=== PATIENT | female | born 1965 | race Caucasian/White ===

== ENCOUNTER 2016-06-09 13:00 | Inpatient (IN) | payer OTHER ==
[~2016-06-09] VITALS: Ht 160 cm; Wt 95.7 kg
--- NOTE | ~2016-06-09 | DS ---
PATIENT'S NAME: [facility] AGE: 51 Y [address] ROOM: [place] [address] LOCATION: [facility] ADMIT DATE: 06/15/2016 Discharge Summary DISCHARGE DATE: 06/17/2016 FAMILY PHYSICIAN: Steven Herrera MD ATTENDING PHYSICIAN: Negor Arias PRIMARY DIAGNOSIS: Degenerative joint disease of the right knee. SECONDARY DIAGNOSES: 1. GERD. 2. Asthma. 3. Obstructive sleep apnea with CPAP. 4. Neuropathy bilateral lower extremities. PROCEDURE PERFORMED: Right total knee arthroplasty. HISTORY: The patient is a 51-year-old female, who presents with advanced right knee degenerative joint disease and associated severely compromised activities of daily living. The patient has decided to proceed with total knee arthroplasty after having been thoroughly counseled regarding the risks, benefits, limitations and alternatives. Please refer to the outpatient clinic notes and admission history and physical for this patient. HOSPITAL COURSE: The patient underwent a right total knee arthroplasty on 06/15/2016 without complications. Spinal anesthesia plus adductor canal block plus periarticular local anesthesia was utilized. The patient received 24 hours of perioperative prophylactic antibiotics and remained hemodynamically stable, neurovascularly intact throughout the entire hospital course. The postoperative prophylactic deep venous thrombosis prophylaxis consisted of Xarelto, early mobilization and pneumatic compression devices. Daily physical therapy for gait training, transfer training range of motion and quadriceps isometric exercises were received. The patient progressed well in physical therapy. On the date of discharge, 06/17/2016, the incision at the knee was healing well and showed no signs of infection. DISPOSITION: Home. DISCHARGE ACTIVITY: The patient is to bear weight as tolerated with range of motion and quadriceps isometric exercises as instructed. The operative extremity is to be elevated at least 90% of the day. There is to be sterile 4x4 gauze dressings to the incision daily. Dr. Arias is to be notified immediately if there is any increased pain, fevers, chills erythema or drainage. DISCHARGE MEDICATIONS: PATIENT'S NAME: [facility] AGE: 51 Y [address] ROOM: [place] [address] LOCATION: [facility] ADMIT DATE: 06/15/2016 Discharge Summary DISCHARGE DATE: 06/17/2016 FAMILY PHYSICIAN: Steven Herrera MD ATTENDING PHYSICIAN: Negro Arias 1. Xarelto 10 mg, one tab p.o. daily for 12 days for postop DVT prophylaxis. 2. Hydromorphone 2 mg 1-2 tabs p.o. every 4 hours p.r.n. for pain. 3. Diazepam 5 mg 1/2 to 1 tab p.o. every 6 hours p.r.n. for muscle spasms. 4. Gabapentin 300 mg three tabs p.o. every night at bedtime for pain. 5. Mobic 7.5 mg one tab p.o. b.i.d. for 7 days for pain. 6. She is then instructed to continue all her other pre-admission medications as instructed by her internal medicine doctor. FOLLOWUP: Followup appointment is to be with DAVID Campa on 06/22/2016 for her initial postoperative evaluation with x-rays of the right knee and suture removal at that time. AMY URIAS PA-C FOR MD KELLY MARTINEZW/nylal /[id number] d: 06/23/16 0531 t: 06/29/16 1315, DISCHARGE SUMMARY
--- NOTE | ~2016-06-09 | PUL ---
PATIENT'S NAME: ANGELO MUSTAFA [facility] AGE: 51 Y [address] ROOM: [address] [address] LOCATION: [facility] ADMIT DATE: 06/15/2016 Pulmonary DISCHARGE DATE: FAMILY PHYSICIAN: Steven Herrera MD ATTENDING PHYSICIAN: MARIUSZ ESCOBEDO NAME OF PROCEDURE: Overnight Pulse Oximetry DATE OF PROCEDURE: June 16 to June 17, 2016 REASON FOR EXAM: Nocturnal hypoxemia RESULTS: The test was started on room air, but supplemental oxygen was added approximately 30 minutes into the study. Subsequently, the oxygen was titrated up to 5 liters throughout the night. The recording time was 7 hours, 44 minutes and 40 seconds, with total valid sampling of 7 hours, 37 minutes and 24 seconds. The highest pulse was 123, lowest pulse was 63, with a mean pulse of 81. The highest SpO2 was 100%, lowest SpO2 was 79%, with a mean SpO2 of 90.2%. The patient spent 2 hours, 7 minutes and 16 seconds with SpO2 less than 89%, representing 27.8% of the total sleep time. The desaturation event index was normal at 2.9. PHYSICIAN INTERPRETATION: The patient has evidence of severe nocturnal hypoxia and would qualify for supplemental oxygen as per Medicare criteria. MD CUBA PRAKASH/delbert /[id number] dtt: 06/18/16 1033 , NIKOLE MCKENZIE dtd: 06/17/16 1537
--- NOTE | ~2016-06-09 | OR ---
[facility] 51 [facility] [address] ROOM: [place] [address] LOCATION: [facility] ADMIT DATE: 06/15/2016 OR/Procedure Report DISCHARGE DATE: FAMILY PHYSICIAN: Steven Herrera MD ATTENDING PHYSICIAN: MARIUSZ ESCOBEDO SURGEON: Mariusz Escobedo MD HYBRID POWERTRAIN DEVELOPMENT ENGINEER: 1. DAVID Alvarado. 2. Maxx Palma CST/WALDO. DATE OF PROCEDURE: 06/15/2016 PREOPERATIVE DIAGNOSIS: Degenerative joint disease, right knee. POSTOPERATIVE DIAGNOSIS: Degenerative joint disease, right knee. OPERATION: Right total knee arthroplasty with computer navigation. ANESTHESIA: Spinal anesthesia plus adductor canal block plus periarticular local anesthesia (ropivacaine with epinephrine). ESTIMATED BLOOD LOSS: Less than 10 mL. DRAIN: None. SPECIMEN: None. COMPLICATIONS: None. IMPLANT SYSTEM: Holden Triathlon. 1. Size 3 right posterior stabilized femoral component. 2. Size 2 universal modular tibial baseplate. 3. A 13 mm posterior stabilized size 2 X3 tibial polyethylene insert. 4. A 29 mm oval X3 patella component. INDICATIONS FOR SURGERY: Ms. Angelo Mustafa is a 51-year-old female who presents with advanced right knee degenerative joint disease and associated severely compromised activities of daily living. The patient has decided to proceed with knee replacement after having been thoroughly counseled regarding the associated risks, benefits, and limitations. We have specifically reviewed the risks and implications of infection, deep venous thrombosis, pulmonary embolism, mortality, neurovascular complications, blood transfusion (and associated potential for disease transmission or transfusion reaction), stiffness, instability, mechanical deterioration of the components (due to wear and or loosening), and the potential need for revision. We have also emphasized the importance of active involvement and compliance with post- operative physical therapy as a means of optimizing range of motion and [facility] AGE: 51 Y [address] ROOM: [place] [address] LOCATION: [facility] ADMIT DATE: 06/15/2016 OR/Procedure Report DISCHARGE DATE: FAMILY PHYSICIAN: Steven Herrera MD ATTENDING PHYSICIAN: MARIUSZ ESCOBEDO functional recovery. Informed consent has been granted. DESCRIPTION OF PROCEDURE: The patient was positioned supine after administration of anesthesia and prophylactic antibiotics. A well-padded pneumatic tourniquet was placed around the right proximal thigh, and the right lower extremity was prepped and draped with vigilant sterile technique. The patient's name as well as the intended operative side and procedure were confirmed with a verbal time-out involving myself, the circulating nurse, the scrub nurse, and the anesthesiologist. Examination under anesthesia demonstrated no active skin lesions or masses. There was a mild effusion. There was no erythema. There was no abnormal warmth. Range of motion under anesthesia was from 5 degrees of hyperextension to 135 degrees of flexion. There was no ligamentous insufficiency. The right lower extremity was elevated and exsanguinated with an Esmarch wrap, and the pneumatic tourniquet was inflated to 300mmHg. The knee was approached through a longitudinal midline incision. A medial parapatellar arthrotomy was performed and the patella was everted. Examination of the joint space demonstrated a moderate amount of benign-appearing translucent synovial fluid. The cruciate ligaments were intact. There were no loose bodies. There was no synovitis. The lateral meniscus was intact. There was mild inner perimeter tearing of the medial meniscus. There were moderate grade 2 degenerative changes at the lateral femoral condyle and lateral tibial plateau. There were small osteophytes at the medial and lateral tibial plateaus as well as the lateral femoral condyle. There was a moderate-sized osteophyte at the medial femoral condyle. There was a 1.5 x 3 cm diameter region of full-thickness articular cartilage loss at the medial half of the medial femoral condyle, and there was extensive surrounding high-grade partial-thickness articular cartilage loss. There was a 1 cm diameter region of full-thickness articular cartilage loss at the medial aspect of the medial tibial plateau, and there was extensive surrounding grade 3 chondromalacia at the medial tibial plateau. There were small osteophytes at the superior and medial margins of the femoral trochlea. There was a 1 cm diameter region of full-thickness articular cartilage loss at the lateral aspect of the femoral trochlea. There was a 1 cm diameter region of full-thickness articular cartilage loss at the lateral facet of the patella and a separate 5 x 15 mm region of full-thickness articular cartilage loss at the inferior half of the lateral facet of the patella. There was high-grade partial-thickness articular cartilage loss throughout the majority of the medial facet of the patella. There were small osteophytes at the inferior and lateral margins of the patella. Photographic documentation of the joint surfaces was obtained intraoperatively. Remnants of the menisci and cruciate ligaments were excised. The [employer] PATIENT'S NAME: ANGELO MUSTAFA [facility] AGE: 51 Y [address] ROOM: [place] [address] LOCATION: [facility] ADMIT DATE: 06/15/2016 OR/Procedure Report DISCHARGE DATE: FAMILY PHYSICIAN: Steven Herrera MD ATTENDING PHYSICIAN: MARIUSZ ESCOBEDO computer navigation femoral tracker was pinned in place at the distal aspect of the femoral trochlea. Absence of motion between the femur and the tracking device was confirmed manually and visually. Femoral osseous landmarks were obtained in order to calibrate the computer navigation system. Landmarks included the center of rotation of the ipsilateral hip, the center-point of the distal femur, the femoral AP axis, 57 points on the medial femoral condyle articular surface, and 57 points on the lateral femoral condyle articular surface. The [employer] computer navigation system was subsequently utilized to position the distal femoral resection block such that the distal femoral resection was performed perfectly perpendicular to the femoral mechanical axis. The distal femoral resection was performed with a [employer]-Trianz oscillating saw. The [employer] computer navigation tibial tracker was pinned in place at the anterior aspect of the tibial plateau. Absence of motion between the tibia and the tracking device was confirmed manually and visually. Tibial osseous landmarks were obtained in order to calibrate the computer navigation system. Landmarks included the center-point of the tibial plateau, the AP tibial axis, 57 points on the medial tibial plateau articular surface, 57 points on the lateral tibial plateau articular surface, the medial malleolus, and the lateral malleolus. The [employer] computer navigation system was subsequently utilized to position the proximal tibial resection block such that the proximal tibial resection was performed perfectly perpendicular to the tibial mechanical axis. The proximal tibial resection was performed with a [employer] Precision oscillating saw. Perpendicularity of the tibial resection with respect to the tibial shaft axis was reconfirmed by inserting a spacer- block attached to an extramedullary guide ny. External rotation of the anterior and posterior femoral resections was set parallel to the epicondylar axis and carefully adjusted in order to create a rectangular flexion gap. The box resection was performed with a reciprocating saw. Anterior and posterior chamfer resections were performed with the oscillating saw. Posterior condyle osteophytes were excised with an osteotome. All other osteophytes were excised with a rongeur. Resection of all remnants of the menisci was reconfirmed. Flexion and extension gaps were confirmed to be symmetric and well balanced with a spacer-block technique. The patella resection was performed with an oscillating saw such that the composite thickness of the reconstructed patella was equivalent to the thickness of the diomede patella. Patella tracking was optimal, and there was no need for a lateral retinacular release. All trial components were removed and all prepared osseous surfaces were thoroughly irrigated with pulsatile saline lavage and dried prior to cementing all three components in a single stage using [employer] Simplex cement containing PATIENT'S NAME: ANGELO MUSTAFA [facility] AGE: 51 Y [address] ROOM: [address] [address] LOCATION: [facility] ADMIT DATE: 06/15/2016 OR/Procedure Report DISCHARGE DATE: FAMILY PHYSICIAN: Steven Herrera MD ATTENDING PHYSICIAN: MARIUSZ ESCOBEDO pre-mixed tobramycin. All extruded excess cement was removed. The entire joint space was thoroughly inspected and thoroughly irrigated with bacteriostatic pulsatile saline lavage to assure that there was no residual debris of any sort. Final range of motion was from full extension (with no residual passive hyperextension) to 130 degrees of flexion. Patella tracking was reconfirmed to be optimal. There was excellent anteroposterior stability at 90 degrees of flexion. There was less than 1 mm of medial lift-off to valgus stress in full extension. There was less than 1 mm of lateral lift-off to varus stress in full extension. The arthrotomy was closed with multiple simple and [id number] interrupted #1 Vicryl. Subcutaneous tissues were thoroughly re-irrigated with bacteriostatic pulsatile saline lavage. Subcutaneous tissues were re- approximated with simple buried interrupted #0 Vicryl sutures. The skin was closed with simple buried interrupted 2-0 Vicryl sutures followed by surgical radha. The dressing consisted of Xeroform gauze, 4x4 gauze, ABD pads and two 6-inch Jaxon Wraps. There were no intra-operative complications. It should be noted that the physician's assistant manager of operations played an active, integral role throughout this entire operation. By providing expert retraction, they greatly facilitated and expedited safe and effective exposure of the distal femur, proximal tibia and patella for preparation and implantation of the components. They were also actively involved in the patient's positioning, prepping and draping, as well as wound closure. MD MORGAN MARTINEZ/cale /[id number] d: 06/15/16 1528 t: 06/20/16 1006, OPERATIVE SUMMARY
[~2016-06-09 13:00] MED LIST: ACETAMINOPHEN650 M2 PO; ADVIL200 MG PO; BENADRYL25 MG PO; BREO ELLIPTA 11 EACH INH; CALCIUM 600 +1 EAC5 PO; CLARITIN10 M2 PO; CPAP INH; CYMBALTA60 MG PO; DILAUDID 4MG4 MG PO; FISH OIL 1,2001 EAC1 PO; FISH OIL1000 MG PO; FLEXERIL10 MG PO; LYRICA 75MG CAP75 MG PO; NEURONTIN300 MG PO; NEXIUM 24HR22.3 MG PO; OXYGEN M-15 INH; PEPCID20 MG PO; PERCOCET 5-3251 EACH PO; PROTONIX40 MG PO; RANITIDINE HCL150 MG PO; SYMBICORT 16010.2 GM INH; TURMERIC COMPL1 EACH PO; TYLENOL ARTHRI650 MG PO; VITAMIN D35000 UNI1 PO; XARELTO10 MG PO
--- NOTE | 2016-06-15 14:24 | NUR ---
Introduced self/role to patient and her "other half". Patient attended the preop joint class. Reports she lives in [place] in one-level home. Has no steps to get in home, has a ramp. Has walker, cane, elevated toilet seat, bath seat, walk in shower, rock aid, closet builder, wall mounted grab bar. No anticipated needs for discharge to home. Will follow and assist as needed.
--- NOTE | 2016-06-15 16:44 | NUR ---
Significant Event:Received from PACU at 1300. 3rd hourly at 1845. Dressing dry and intact. CSM WNL. Hx of neuropathy at lower legs. Dilaudid 2mg at 1558. O2 at 2L. Incontenent large amount of urine plus void 300ml. Bladder scan >999. Straight cath at 1500 for 750ml. No void since. CPAP at night. Up in recliner. Follow up:
--- NOTE | 2016-06-16 04:47 | NUR ---
Patient alert and oriented x3, very pleasant and cooperative, csm with in normal limits, does have a hx of neropathy from previous back surgery, dressing clean dry and intact to knee, ice in place, transfer well one assist with walker and gaitbelt, walked to the bathroom, voiding well, on 5L with CPAP
--- NOTE | 2016-06-16 10:54 | NUR ---
Introduced self and CM role to patient this morning. Patient states she is doing well. She stated she has had surgery on her other knee before and she still has a cane, walker, showerbench, and other DME from that surgery that she will be using again. Her father and she is staying at his home in [place], [place] right now. Her significant other is taking a few days off work to stay with her upon leaving the hospital. Plan to return home to [place] in the evening tomorrow 06/17. No needs or concerns at this time. Wrote CM name on markerboard and told her to contact us if concerns arise. CM Stitcher Operator TH.
--- NOTE | 2016-06-16 16:22 | NUR ---
patient doing well. ambulated up to bathroom, joint room with walker and standby assist. tolerating actiivty well. dilaudid 2 mg tabs x4, last dose at 1550. dilaudid 0.2 mg iv x 2 for breakthrough pain at 1115 and 1250. toradol at 1115. with good relief of pain. flexeril at 1045 for muscle spasms. csm adequate. uses a cpap, will have trend ox tonight, uses o2 at home but has increased needs of oxygen here during the day. at 2 l/min to maintain sats. saline loc to right hand intact and flushes well.
--- NOTE | 2016-06-17 04:43 | NUR ---
Significant Event: Alert and oriented. Vital signs stable. Sats at 96% on 2L while awake. Pt desated to 80% after ambulation back from the bathroom without 02. Wears CPAP while sleeping. Overnight trend ox was done. Pt needed to be increased to 5L 02 through CPAP to maintain 90%. Pt also desated to 80-81% on RA while sleeping. Dressing to R) knee is CDI. CSM WNL. Ambulates to bathroom with SBA, gait belt and walker. Increased pain around 0215. Dilaudid IVP given X2, last at 0305. Dilaudid 2 mg given X5 this shift, last at 0305. Toradol given x1 at 2135. Flexeril given X1 at 2313. Pt appears to be comfortable and appears to be sleeping since 0300. IV to R) hand. Follow up: Continue to monitor 02 levels.
[2016-06-17] MEDS ORDERED: COLACE100 MG PO (16:31)
[2016-06-17] MEDS ORDERED: MIRALAX17 GM PO (16:32)
[2016-06-17] MEDS ORDERED: XARELTO10 MG PO (16:33)
[2016-06-17] MEDS ORDERED: VALIUM5 MG PO (16:34)
[2016-06-17] MEDS ORDERED: MOBIC7.5 MG PO (16:35)
[2016-06-17] MEDS ORDERED: DILAUDID 2MG(HYD2 MG PO (16:35)
--- NOTE | 2016-06-17 19:15 | NUR ---
Pt discharged to go home today. Ambulates by self with walker and does fairly well. Pt has intact incision to knee. Shaheed intact. CSM WNL. Pt does exercises well and uses IS. Pt has rated pain at 3-4 to knee and has relief from dilaudid. Pt sats have been about 90% and enc to use IS and deep breathe frequently. Will use CPAP with 5L at noc and will be set up after she gets home. Pt has had ice to knee and had it elevated all shift. Pt and spouse verbalize understanding of all instructions. Pt discharged in stable condition
[2016-08-05] MEDS ORDERED: PROAIR HFA8.5 GM INH (09:20)
[2016-08-07] MEDS ORDERED: ARTHRITIS PAIN650 M1 PO (11:58)
[2016-09-10] MEDS ORDERED: DELTASONE10 MG PO (09:08)
== END 2016-06-17 17:33 | disposition disaster alternative care site (69) | DRG 470 ==
LOC: G3N 06-15 07:04
PROVIDERS: ADMIT Orthopaedic Surgery
PROC: 8E0YXBZ Computer Assisted Procedure of Lower Extremity (ICD-10-PCS; principal; 2016-06-15)
PROC: 0SRC0J9 Replacement of Right Knee Joint with Synthetic Substitute, Cemented, Open Approach (ICD-10-PCS; principal; 2016-06-15)
DX: M17.11 Unilateral primary osteoarthritis, right knee (principal); G62.9 Polyneuropathy, unspecified; K21.9 Gastro-esophageal reflux disease without esophagitis; G47.33 Obstructive sleep apnea (adult) (pediatric); J45.909 Unspecified asthma, uncomplicated; Z23 Encounter for immunization
CPT/HCPCS: C1713; C1776; G0009; J0690; J1100; J1170; J1885; J2001; J2250; J2405; J2795; J7050; J7120

== ENCOUNTER → 2016-06-11 | Outpatient (CLI) | payer OTHER ==
[~2016-06-11] MED LIST changes: +ACID CONTROL150 MG PO; +ACIDOPHILUS1 EAC2 PO; +ARTHRITIS PAIN650 M1 PO; +ASPIRIN EC81 MG PO; +BACTRIM DS1 TAB PO; +COLACE100 MG PO; +DELTASONE10 MG PO; +DILAUDID 2MG(HYD2 MG PO; +KEFLEX500 MG PO; +MIRALAX17 GM PO; +MOBIC7.5 MG PO; +PROAIR HFA8.5 GM INH; +VALIUM5 MG PO
== END | disposition disaster alternative care site (69) ==
LOC: GNJRC 09:47
DX: Z01.812 Encounter for preprocedural laboratory examination (principal); M17.11 Unilateral primary osteoarthritis, right knee

== ENCOUNTER → 2016-07-23 | Outpatient (CLI) | payer OTHER, SELFPAY | END | disposition disaster alternative care site (69) | LOC: GRAD 16:30 | DX: R06.09 Other forms of dyspnea (principal); R00.0 Tachycardia, unspecified; R79.89 Other specified abnormal findings of blood chemistry; R91.8 Other nonspecific abnormal finding of lung field ==

== ENCOUNTER → 2016-07-31 | Outpatient (CLI) | payer OTHER, SELFPAY ==
--- NOTE | ~2016-07-31 | PUL ---
PATIENT'S NAME: ANGELO MUSTAFA [facility] AGE: 51 Y [address] ROOM: [place] [address] LOCATION: [facility] ADMIT DATE: 07/31/2016 Pulmonary DISCHARGE DATE: FAMILY PHYSICIAN: Steven Herrera MD ATTENDING PHYSICIAN: NIKOLE MCKENZIE NAME OF PROCEDURE: Pulmonary Function Test DATE OF PROCEDURE: July 31, 2016 TECH: ATripe, SUBSCRIPTION CREW LEADER REASON FOR EXAM: Dyspnea on exertion RESULTS: 1. FVC was 2.5 liters which is 74% of predicted and low, FEV1 was 1.83 liters which is 69% of predicted and low, and FEV1/FVC was 73% and normal. The flow volume curve revealed significant airflow limitation at low lung volumes. After bronchodilator administration FVC increased to 2.64 liters which is a 6% increase and FEV1 increased to 1.91 liters which is a 5% increase. FEV1/FVC was 72%. 2. DLCO was 13 with an adjusted DLCO of 14 which is 55% of predicted and low. 3. Total lung capacity was 5.6 liters which is 119% of predicted and high, and residual volume was 2.5 liters which is 148% of predicted and high. 4. PH was 7.39, pCO2 was 40, PO2 was 56 while on room air. The base deficit was 0.7. PHYSICIAN INTERPRETATION: The patient has no airflow limitation as per ATS/ERS criteria, although she had evidence of airflow limitation at low lung volumes. There is no significant bronchodilator response. Her diffusion capacity is moderately low. She has evidence of hyperinflation and air trapping on the lung volumes. There are no significant metabolic abnormalities, and her oxygenation is borderline low at rest while on room air. MD CUBA PRAKASH/delbert /[id number] dtt: 08/03/16 1616 , NIKOLE MCKENZIE dtd: 08/03/16 1341
--- NOTE | ~2016-07-31 | PUL ---
PATIENT'S NAME: ANGELO MUSTAFA [facility] AGE: 51 Y [address] ROOM: [place] [address] LOCATION: [facility] ADMIT DATE: 07/31/2016 Pulmonary DISCHARGE DATE: FAMILY PHYSICIAN: Steven Herrera MD ATTENDING PHYSICIAN: NIKOLE MCKENZIE NAME OF PROCEDURE: Six Minute Walk Test DATE OF PROCEDURE: July 31, 2016 TECH: ATripe, [employer] LIMOUSINE REASON FOR EXAM: Dyspnea on exertion RESULTS: The test was performed on room air. The patient walked for 1275 feet at a pace of 2.4 miles/hour. She had no periods of rest. Her oxygen saturation at the beginning of the test was 94% on room air, then dropped to 83% during the test, and was 86% immediately after the test. She had significant increases in her heart rate, and appropriate increases in her blood pressure. Her perceived dyspnea was 2/10 on the Susanne scale. PHYSICIAN INTERPRETATION: The patient has mild limitation in her exercise capacity, despite significant desaturations and hypoxia during exercise while on room air. MD CUBA PRAKASH/delbert /[id number] dtt: 08/03/16 1611 , NIKOLE MCKENZIE dtd: 08/03/16 1335
[2016-07-31 11:20] LABS: BICARBONATE 24.2 mmol/L (18.0-23.0); PCO2 40 mmHg (35-45); PO2 56 mmHg (80-90)
== END | disposition disaster alternative care site (69) ==
LOC: GRTH 10:37
PROVIDERS: Internal Medicine Critical Care Medicine
DX: R06.09 Other forms of dyspnea (principal); R09.02 Hypoxemia; R91.8 Other nonspecific abnormal finding of lung field

== ENCOUNTER → 2016-08-07 | Day surgery (SDC) | payer OTHER, SELFPAY ==
[~2016-08-07] VITALS: Ht 160 cm; Wt 91.7 kg
--- NOTE | ~2016-08-07 | ECHO ---
Transthoracic Echocardiography Report (TTE) Demographics Patient Name ANGELO MUSTAFA Date of Study 08/07/2016 Patient Number [id number] Visit Number [id number] Date of 1965 Room Number Accession Number [id number] Gender Female Age 51 year(s) Referring Javier Cm MD Director Public Service Fernanda Bey Physician Valeria Oswald RD, RVT Physician Interpreting Romelia Ortega Esthetics Instructor Physician Supervising Ordering Physician Valeria Oswald MD/MLP Nurse Stress Pharmacy Informaticist Conclusions Contractility Score Summary Normal Left Ventricular contractility was noted. Summary The estimated left ventricular ejection fraction is 60%. Normal left ventricle size and function. No significant valvular abnormalities. Procedure Type of Study TTE procedure:2D Echocardiogram. Procedure Date Date: 08/07/2016 Start: 10:35 AM Study Location: Echo Lab Technical Quality: Adequate visualization Indications:Tachycardia. Appropriate Use Criteria: 9 Patient Status: Routine Rhythm: Sinus tachycardia HR: 94 bpm BP: 168/92 mmHg M-Mode/2D Measurements LV Diastolic Dimension: 4.55 cm LV Systolic Dimension: 3.02 cm LV Septum Diastolic: 0.85 cm LV PW Diastolic: 0.9 cm AO Root Dimension: 3 cm Cardiac Output: 6.05 l/min AV Cusp Separation: 2 cm RV Diastolic Dimension: 3.35 cm LA volume: 49 ml LVOT: 1.9 cm RV Base: 3 cm LVOT VTI: 22.7 cm RV Mid: 2.34 cm LV Stroke volume: 64.33 ml TAPSE: 2.34 cm TDI-S': 15.1 cm/s Doppler Measurements AV Peak Velocity: 1.05 m/s MV Peak E-Wave: 0.86 m/s AV Peak Gradient: 4.41 mmHg MV Peak A-Wave: 1.04 m/s AV Mean Gradient: 3 mmHg MV E/A Ratio: 0.83 LVOT Peak Velocity: 1.02 m/s MV Deceleration Time: 236 msec TR Velocity:2.46 m/s PV Peak Velocity: 0.97 m/s TR Gradient:24.21 mmHg PV Peak Gradient: 3.74 mmHg Estimated RAP:5 mmHg Estimated PASP: 29.21 mmHg Estimated RVSP: 29 mmHg A' Septal Velocity: 0.14 m/s E' Septal Velocity: 0.06 m/s A' Lateral Velocity: 0.15 m/s E' Lateral Velocity: 0.09 m/s Findings Left Ventricle Normal left ventricle size and function. Diastolic assessment reveals Grade I diastolic dysfunction. Right Ventricle Normal right ventricle structure and function. Left Atrium Normal left atrial size. Right Atrium Normal right atrial size. IVC measures 1.21 cm with inspiratory collapse. Mitral Valve Trivial mitral regurgitation by color Doppler. Aortic Valve Normal aortic valve structure and function. Tricuspid Valve Trivial tricuspid regurgitation by color Doppler. Pulmonic Valve Normal pulmonic valve structure and function. Pericardial Effusion No evidence of pericardial effusion. Miscellaneous Visualized portions of the aortic root and ascending aorta appear normal in size. Pleural Effusion No evidence of pleural effusion. Contractility Score LV regional wall motion:(0-Non visualized 1-Normal 2-Hypokinesis 3-Akinesis 4-Dyskinesis 5-Aneurysm) Signature dtt: Shannon León dtd: 08/07/16 1035 Physician Self Edit
--- NOTE | ~2016-08-07 | OR ---
[facility]GE[facility] 51 Y [address] ROOM: [place] [address] LOCATION: [facility] ADMIT DATE: 08/07/2016 OR/Procedure Report DISCHARGE DATE: FAMILY PHYSICIAN: Steven Herrera MD ATTENDING PHYSICIAN: ADAN MCKENZIE SURGEON: Adan Mckenzie MD DATE OF PROCEDURE: 08/07/2016 PROCEDURE STAFFING COORDINATOR: Delma Bean, elevator technician. PROCEDURES PERFORMED: Procedure Name: 1. Bronchoscopy with bronchoalveolar lavage of the right middle lobe. 2. Bronchoscopy with transbronchial biopsies of the right middle and right lower lobes. INDICATIONS AND PRE-PROCEDURE DIAGNOSES: 1. Abnormal chest CT with bilateral ground-glass opacities. 2. Chronic respiratory failure. 3. Interstitial lung disease. POST-PROCEDURE DIAGNOSES: 1. Abnormal chest CT with bilateral ground-glass opacities. 2. Chronic respiratory failure. 3. Interstitial lung disease. CONSENT: Consent was obtained from the patient after all the indications, risks, benefits, and alternatives were explained at length. The patient verbalized understanding and signed an informed consent. PROCEDURE DESCRIPTION: The patient was taken to the endoscopy suite where a laryngeal mask was applied by the Anesthesia team uneventfully. General anesthesia was started. The bronchoscope was advanced through the laryngeal mask and the airways were examined. Local anesthesia was obtained with 2% lidocaine solution instillations at the level of the vocal cords, kennedi, and both bronchial trees. FINDINGS: There was [id number] amount of frothy, clear secretion in bronchial trees without any obvious endobronchial lesions, old or new blood clots, or any active bleeding. All the secretions were suctioned easily. A bronchoalveolar lavage was performed from the right middle lobe medial segment. 60 mL of sterile saline was instilled with return of 25 mL of slightly cloudy bronchoalveolar lavage fluid. Afterwards, I performed 4 transbronchial biopsies from the right middle lobe and 4 transbronchial biopsies from the right lower lobe using fluoroscopic guidance. After the PAT[facility] AGE: 51 Y [address] ROOM: [place] [address] LOCATION: [facility] ADMIT DATE: 08/07/2016 OR/Procedure Report DISCHARGE DATE: FAMILY PHYSICIAN: Steven Herrera MD ATTENDING PHYSICIAN: ADAN MCKENZIE last biopsy, there was some bleeding that stopped with cold saline instillations. At the end of the procedure, there was no evidence of active bleeding. The bronchoscope was withdrawn, and the patient was returned to the Anesthesia team for further management. COMPLICATIONS: None. The patient had minimal bleeding which is expected with transbronchial biopsies. ESTIMATED BLOOD LOSS: Between 50 and 20 mL. SPECIMENS: The bronchoalveolar lavage will be sent for microbiology and cytology studies, and transbronchial biopsies will be sent for pathology and microbiology studies. MD CUBA PRAKASH/nylal /[id number] d: 08/07/16 2237 t: 08/09/16 1303, OPERATIVE SUMMARY
== END | disposition disaster alternative care site (69) ==
LOC: GPOC 08-05 10:00
PROC: 0BBD8ZX Excision of Right Middle Lung Lobe, Via Natural or Artificial Opening Endoscopic, Diagnostic (ICD-10-PCS; principal; 2016-08-07)
PROC: 0BBF8ZX Excision of Right Lower Lung Lobe, Via Natural or Artificial Opening Endoscopic, Diagnostic (ICD-10-PCS; 2016-08-07)
PROC: 0B9D8ZX Drainage of Right Middle Lung Lobe, Via Natural or Artificial Opening Endoscopic, Diagnostic (ICD-10-PCS; 2016-08-07)
DX: R91.8 Other nonspecific abnormal finding of lung field (principal); J96.10 Chronic respiratory failure, unspecified whether with hypoxia or hypercapnia; J84.9 Interstitial pulmonary disease, unspecified; F41.9 Anxiety disorder, unspecified; J45.909 Unspecified asthma, uncomplicated; G47.33 Obstructive sleep apnea (adult) (pediatric); Z87.891 Personal history of nicotine dependence; Z90.710 Acquired absence of both cervix and uterus; Z98.51 Tubal ligation status; Z98.890 Other specified postprocedural states
CPT/HCPCS: J7030

== ENCOUNTER → 2016-09-10 | Day surgery (SDC) | payer OTHER, SELFPAY ==
[~2016-09-10] VITALS: Ht 160 cm; Wt 90.3 kg
--- NOTE | ~2016-09-10 | OR ---
PATIENT'S NAME: ANGELO MUSTAFA [facility] AGE: 51 Y [address] ROOM: [place] [address] [place] [facility] [place]: 09/10/2016 OR/Procedure Report DISCHARGE DATE: FAMILY PHYSICIAN: Steven Herrera MD ATTENDING PHYSICIAN: MARIUSZ ESCOBEDO SURGEON: Mariusz Escobedo MD MANUFACTURING JOB TITLES: 1. Dimas Mckee PA-C. 2. Maxx Palma CST/SIZE PAINTER. DATE OF PROCEDURE: 09/10/2016 PREOPERATIVE DIAGNOSES: 1. Painful retained hardware, left knee. 2. Status post open reduction and internal fixation left patella fracture. POSTOPERATIVE DIAGNOSES: 1. Painful retained hardware, left knee. 2. Status post open reduction and internal fixation left patella fracture. PROCEDURE PERFORMED: Removal of deep hardware, left patella. ANESTHESIA: Spinal plus local anesthesia. DRAINS: None. SPECIMEN: None. COMPLICATIONS: None. IMPLANTS: None. INDICATION FOR PROCEDURE: Ms. Mustafa is a 51-year-old female presenting with left anterior knee pain associated with retained hardware. She is status post open reduction and internal fixation of a left patella fracture with Dr. Elder Hinson 1 year ago. The fracture has healed. The fracture was fixed with 2 cannulated screws and a [id number] tension band wire. Risks, benefits, limitations, and alternatives to removal of hardware have been thoroughly reviewed. We have specifically discussed the potential for infection, neurovascular complications, persistent pain, and potential need for further surgery. I have emphasized that it is quite possible that the retained hardware is not the sole source of discomfort, and she has been informed not to expect that her pain will be completely eradicated by this procedure. She understands and accepts this. Informed consent has been granted. DESCRIPTION OF PROCEDURE: The patient was positioned supine after administration of spinal anesthetic and prophylactic antibiotics. A well- PATIENT'S NAME: ANGELO MUSTAFA [facility] AGE: 51 Y [address] ROOM: [place] [address] [place] [facility] [place] DATE: 09/10/2016 OR/Procedure Report DISCHARGE DATE: FAMILY PHYSICIAN: Steven Herrera MD ATTENDING PHYSICIAN: MARIUSZ ESCOBEDO padded pneumatic tourniquet was placed around her left proximal thigh. Her left lower extremity was prepped and draped with vigilant sterile technique. Examination under anesthesia demonstrated 10 degrees of passive hyperextension and 140 degrees of flexion. There was no ligamentous insufficiency. There was a trace effusion. There was a well-healed longitudinal midline scar. The left lower extremity was elevated and exsanguinated with an Esmarch wrap after the left lower extremity had been prepped and draped with vigilant sterile technique. The pneumatic tourniquet was inflated to 300 mmHg. The patella was approached via a longitudinal midline incision within the preexisting scar. The tension band cable was identified at the point of the twisted ends of the wire at the superomedial and superolateral borders of the patella. The wire was transected at each of these points, and the twisted portions of the wire were removed. The heads of the 2 cannulated screws were subsequently identified at the inferomedial and inferolateral border of the patella. This required a bridged longitudinal divisions of the patellar tendon. These divisions were made bluntly in parallel with the patellar tendon fibers. The remaining portions of the tension band wire were removed, and the 2 screws were removed intact. Fluoroscopic imaging confirmed that all hardware had been removed. The incision was thoroughly irrigated with sterile saline containing bacitracin. Subcutaneous tissues and periarticular soft tissues were infiltrated with ropivacaine and epinephrine. The incision was closed with simple deep interrupted 0 Vicryl sutures followed by superficial buried interrupted 2-0 Vicryl sutures, followed by surgical radha. The dressings consisted of Xeroform gauze followed by sterile gauze, ABD pads, and an Jaxon wrap. MD MORGAN MARTINEZ/cale /[id number] d: 09/11/16646 t: 09/27/162139, OPERATIVE SUMMARY
== END ==
LOC: GSDC 08:25 → GPOC 08:30
PROC: 0YPB0YZ Removal of Other Device from Left Lower Extremity, Open Approach (ICD-10-PCS; principal; 2016-09-10)
DX: T84.84XA Pain due to internal orthopedic prosthetic devices, implants and grafts, initial encounter (principal); K21.9 Gastro-esophageal reflux disease without esophagitis; G47.33 Obstructive sleep apnea (adult) (pediatric); I27.2 Other secondary pulmonary hypertension; J96.10 Chronic respiratory failure, unspecified whether with hypoxia or hypercapnia; Z90.710 Acquired absence of both cervix and uterus; Z98.890 Other specified postprocedural states; Z98.51 Tubal ligation status; Z87.891 Personal history of nicotine dependence
CPT/HCPCS: C1713; J0690; J7030

== ENCOUNTER → 2016-10-02 | Outpatient (CLI) | payer OTHER, SELFPAY | END | disposition disaster alternative care site (69) | LOC: GRAD 09:45 | DX: J84.9 Interstitial pulmonary disease, unspecified (principal); R91.1 Solitary pulmonary nodule ==

== ENCOUNTER → 2016-10-06 | Outpatient (CLI) | payer OTHER, SELFPAY ==
--- NOTE | ~2016-10-06 | ENPV ---
Vascular Lower Extremities DVT Study Procedure Demographics Patient Name ANGELO MUSTAFA Date of Study 10/06/2016 Patient Number [id number] Gender Female Date of 1965 Age 51 Visit Number [id number] Height Accession Number [id number] Weight Room Number BSA BMI Referring Javier Cm MD Interpreting Buck Guerrero MD Physician Physician Physician Ordering Physician Hugo Mckoy MD Spice Cleaner Preschool Disability Teacher Annika Ponce [facility], [facility] Conclusions Summary Normal venous duplex examination of the legs bilaterally with normal venous Doppler signals noted throughout. No evidence of thrombophlebitis is noted bilaterally in the deep and superficial veins of the legs. Small calf thrombi cannot be excluded. Procedure Type of Study: Veins:Lower Extremities DVT Study, Lower Extremity Left. Indications for Study:Swelling and Pain in Limb. Appropriate Use Criteria:6 Patient Status:Routine. Study Location:Vascular Lab. Technical Quality:Adequate visualization. - Preliminary reported to:Dr. Negro Arias at 1715. Velocities are measured in cm/s ; Diameters are measured in cm Right Lower Extremities DVT Study Measurements Right 2D and Doppler Measurements + + + + +------+------+ + !Location !Visualized!Compressibility!Thrombosis!Signal!Reflux!Reflux ! ! ! ! ! ! ! !(sec) ! + + + + +------+------+ + !GSV Thigh !Yes !Yes !None !Phasic! ! ! + + + + +------+------+ + !Common !Yes !Yes !None !Phasic! ! ! !Femoral ! ! ! ! ! ! ! + + + + +------+------+ + Left Lower Extremities DVT Study Measurements Left 2D and Doppler Measurements + + + + +------+------+ + !Location !Visualized!Compressibility!Thrombosis!Signal!Reflux!Reflux ! ! ! ! ! ! ! !(sec) ! + + + + +------+------+ + !GSV Thigh !Yes !Yes !None !Phasic! ! ! + + + + +------+------+ + !Common !Yes !Yes !None !Phasic! ! ! !Femoral ! ! ! ! ! ! ! + + + + +------+------+ + !Prox !Yes !Yes !None !Phasic! ! ! !Femoral ! ! ! ! ! ! ! + + + + +------+------+ + !Mid Femoral!Yes !Yes !None !Phasic! ! ! + + + + +------+------+ + !Dist !Yes !Yes !None !Phasic! ! ! !Femoral ! ! ! ! ! ! ! + + + + +------+------+ + !Popliteal !Yes !Yes !None !Phasic! ! ! + + + + +------+------+ + !PTV !Yes !Yes !None !Phasic! ! ! + + + + +------+------+ + !Peroneal !Yes !Yes !None !Phasic! ! ! + + + + +------+------+ + Signature Electronically signed by Buck Guerrero MD([facility] physician) on 10/06/2016 05:46 PM dtt: JOSY NUNEZ: 10/06/16 1639 Physician Self Edit
== END | disposition disaster alternative care site (69) ==
LOC: GCAR 16:30
DX: M79.604 Pain in right leg (principal); M79.89 Other specified soft tissue disorders

== ENCOUNTER 2016-10-21 09:50 | Day surgery (SDC) | payer OTHER ==
[~2016-10-21] VITALS: Ht 160 cm; Wt 93.3 kg
--- NOTE | ~2016-10-21 | OR ---
PATIENT'S NAME: ANGELO MUSTAFA [facility] AGE: 51 Y [address] ROOM: [place] [address] LOCATION: [facility] ADMIT DATE: 10/21/2016 OR/Procedure Report DISCHARGE DATE: 10/21/2016 FAMILY PHYSICIAN: Steven Herrera MD ATTENDING PHYSICIAN: Negro Arias SURGEON: Negro Arias MD DIRECTOR CREDIT RISK: 1. Dimas Mckee PA-C. 2. Maxx Palma CST/HEAD OF ENGLISH. DATE OF PROCEDURE: 10/21/2016 PREOPERATIVE DIAGNOSIS: Incompletely healed left anterior knee wound communicating with septic prepatellar bursitis. POSTOPERATIVE DIAGNOSIS: Incompletely healed left anterior knee wound communicating with septic prepatellar bursitis. PROCEDURES PERFORMED: Irrigation and debridement of septic left prepatellar bursa. ANESTHESIA: General endotracheal anesthesia. ESTIMATED BLOOD LOSS: Less than 1 mL. SPECIMENS: Culture of left prepatellar bursa. COMPLICATIONS: None. DRAINS: A quarter-inch [place] drain x1. INDICATIONS FOR PROCEDURE: Ms. Mustafa is a 51-year-old female, who has developed drainage from the distal aspect of a left anterior knee incision through which the patellar hardware had been removed the last month. This first appeared to be consistent with a suture abscess, and subsequently, a small subcutaneous abscess. She has been treated with oral antibiotics, and we have been attempting to allow the wound to heal by secondary intention. However, the wound has been slow to contract. The wound has recently been noted to have started to expand proximally along the anterior cortex of the patella. The patient has developed no associated effusion or signs of septic arthritis. She has minimal pain. Risks, benefits, limitations, and alternatives to irrigation and debridement have been thoroughly reviewed, and informed consent has been granted. We discussed the potential for persistent and/or recurrent infection. We have discussed the potential for associated osteomyelitis. We have explained that further irrigation and debridement may be necessary if she PATIENT'S NAME: ANGELO MUSTAFA [facility] AGE: 51 Y [address] ROOM: [place] [address] LOCATION: [facility] ADMIT DATE: 10/21/2016 OR/Procedure Report DISCHARGE DATE: 10/21/2016 FAMILY PHYSICIAN: Steven Herrera MD ATTENDING PHYSICIAN: Negro Arias does not respond favorably to this intervention. Informed consent was granted. DESCRIPTION OF PROCEDURE: The patient was positioned supine. General endotracheal anesthesia was administered. A well-padded pneumatic tourniquet was placed around the left proximal thigh. The left lower extremity was prepped and draped with vigilant sterile technique. Examination under anesthesia demonstrated an 8-mm orifice overlying the inferior pole of the patella. There was no prepatellar fluctuance. There was no effusion. There was no erythema. There was no abnormal warmth. There was slight purulence at the wound. Culture swabs were taken. The wound margins were sharply excised, and the incision was extended proximally in line with the pre-existing scar. No communication with the joint space was noted. There was a moderate amount of granulation tissue surrounding the base of the defect. No communication with the joint space was noted. There was no malodor. The margins of the wound were curetted. The wound was irrigated with 700 mL of sterile saline with bacitracin using pulsatile lavage. A [place] drain was tunneled subcutaneously approximately 3 cm proximally, and left at the base of the defect. There was no necrotic tissue. WOUND CLOSURE: The incision was reapproximated with multiple simple, buried interrupted 0 PDS suture. The skin was closed with a running subcuticular 3-0 Monocryl suture, followed by Dermabond and Steri-Strips with benzoin. The dressings consisted of Xeroform gauze, followed by Mepilex, followed by sterile gauze and an Jaxon wrap. POSTOPERATIVE CONDITION: There were no complications. MD MORGAN MARTINEZ/cale /[id number] d: 10/22/163 t: 10/30/16 0752, OPERATIVE SUMMARY
[~2016-10-21 09:50] MED LIST changes: -ACID CONTROL150 MG PO; -ACIDOPHILUS1 EAC2 PO; -ASPIRIN EC81 MG PO; -BACTRIM DS1 TAB PO; -KEFLEX500 MG PO
[2016-10-21] MEDS ORDERED: BACTRIM DS1 TAB PO (10:38)
[2016-10-21] MEDS ORDERED: ACID CONTROL150 MG PO (10:40)
[2016-10-21] MEDS ORDERED: ACIDOPHILUS1 EAC2 PO (10:41)
[2016-10-21 10:53] LABS: BASOPHIL % 0.5 %; EOSINOPHIL # 0.1 K/uL (0.0-0.5); EOSINOPHIL % 0.7 %; HEMATOCRIT 34.3 % (33.0-46.0); IMMATURE GRANULOCYTE # 0.1 K/uL (0.0-0.3); LYMPHOCYTE % 11.7 %; MCH 30.1 pg (27.0-34.0); MCHC 32.1 gm/dL (32.0-36.5); MCV 93.7 fl (83.0-98.0); MONOCYTE # 0.4 K/uL (0.0-1.0); MONOCYTE % 5.1 %; MPV 9.3 fl (9.4-12.4); NEUTROPHIL # (ANC) 6.7 K/uL (1.8-7.8); NRBC % 0 /100WBC (0-0.00); PLATELET COUNT 220 K/uL (150-450); RBC 3.66 M/uL (3.50-5.50); RDW-CV 16.6 % (11.9-14.6); WBC 8.3 K/uL (4.0-11.0)
[2016-10-21] MEDS ORDERED: ASPIRIN EC81 MG PO (11:27)
[2016-10-21] MEDS ORDERED: KEFLEX500 MG PO (17:26)
[2016-10-21] MEDS ORDERED: DILAUDID 2MG(HYD2 MG PO (17:26)
--- NOTE | 2016-10-21 17:49 | NUR ---
PT GIVEN DISCHARGE INSRUCTIONS AND VOICES UNDERSTANDING. ESCORTED TO THE FRONT DOOR BY THIS NURSE. AT PT'S SIDE.
== END 2016-10-21 17:45 | disposition disaster alternative care site (69) ==
LOC: GSDC 09:50 → G3N 09:50 → GSDC 17:45
PROVIDERS: Orthopaedic Surgery
PROC: 0MBP0ZZ Excision of Left Knee Bursa and Ligament, Open Approach (ICD-10-PCS; principal; 2016-10-21)
DX: M71.162 Other infective bursitis, left knee (principal); S81.002D Unspecified open wound, left knee, subsequent encounter; J45.909 Unspecified asthma, uncomplicated; M19.90 Unspecified osteoarthritis, unspecified site; G47.30 Sleep apnea, unspecified; Z79.899 Other long term (current) drug therapy; Z79.82 Long term (current) use of aspirin
CPT/HCPCS: J0360; J1100; J1720; J2001; J2405; J3010; J7030

== ENCOUNTER → 2016-11-13 | Outpatient (CLI) | payer OTHER ==
[~2016-11-13] MED LIST changes: +ACID CONTROL150 MG PO; +ACIDOPHILUS1 EAC2 PO; +ASPIRIN EC81 MG PO; +BACTRIM DS1 TAB PO; +KEFLEX500 MG PO
== END | disposition disaster alternative care site (69) ==
LOC: GRAD 10:10
DX: J84.9 Interstitial pulmonary disease, unspecified (principal); S22.39XD Fracture of one rib, unspecified side, subsequent encounter for fracture with routine healing; X58.XXXD Exposure to other specified factors, subsequent encounter

== ENCOUNTER → 2016-11-25 | Outpatient (CLI) | payer OTHER | END | disposition disaster alternative care site (69) | LOC: GKIC 11-20 11:30 → GRAD 11-20 11:30 → GKIC 08:00 | DX: R42 Dizziness and giddiness (principal); R55 Syncope and collapse ==